=== PATIENT | female | born 1980 | race Caucasian/White ===

== ENCOUNTER 2024-02-07 13:12 | Emergency (ER) | payer OTHER ==
[~2024-02-07] VITALS: Ht 167.6 cm; Wt 74.8 kg
[2024-02-07] MEDS ORDERED: AMOXICILLIN TRIHYDRATE 250 MG CAPSULE ONE (14:34)
[2024-02-07] MEDS: AMOXICILLIN TRIHYDRATE 500 MG CAPSULE PO ONE (14:37)
[2024-02-07] MEDS ORDERED: AMOX500C2 PO (14:39)
[2024-02-07 14:47] VITALS: BP 132/72; TEMP 98; O2SAT 99
== END 2024-02-07 14:47 | disposition home or self-care (01) ==
LOC: ER 13:27
DX: J02.9 Acute pharyngitis, unspecified (principal)